=== PATIENT | male | born 1985 | race Two or more races ===

== ENCOUNTER 2023-02-19 06:02 | Emergency (ER) | payer MEDICAID ==
[~2023-02-19] VITALS: Ht 175.3 cm; Wt 95.9 kg
[2023-02-19 07:35] VITALS: BP 122/78; PULSE 63; RESP 16; TEMP 97.8; O2SAT 100
[2023-02-19] MEDS ORDERED: HYDROcodone-ACET 5/325MG TAB PO ONE (07:45)
[2023-02-19] MEDS ORDERED: IBUP-1456 PO (08:52)
== END 2023-02-19 08:54 | disposition home or self-care (01) ==
LOC: ER 06:02
DX: S62.324A Displaced fracture of shaft of fourth metacarpal bone, right hand, initial encounter for closed fracture (principal); I10 Essential (primary) hypertension; E78.5 Hyperlipidemia, unspecified; J44.9 Chronic obstructive pulmonary disease, unspecified; W26.8XXA Contact with other sharp object(s), not elsewhere classified, initial encounter; Y93.89 Activity, other specified; Y92.89 Other specified places as the place of occurrence of the external cause; Y99.8 Other external cause status
CPT/HCPCS: 29125; 73130

== ENCOUNTER 2024-03-06 17:42 | Emergency (ER) | payer MEDICAID ==
[~2024-03-06] VITALS: Ht 175.3 cm; Wt 96.9 kg
[~2024-03-06 17:42] MED LIST: IBUP-1456 PO
[2024-03-06 17:55] VITALS: BP 121/87; PULSE 97; RESP 18; O2SAT 96
[2024-03-06 21:41] LABS: Urine Bacteria None Seen /hpf (None Seen); Urine WBC None Seen /hpf (0 - 3)
[2024-03-06 21:52] LABS: Urine Blood Negative /uL (Negative); Urine Clarity Clear (Clear); Urine Color Yellow (Yellow); Urine Protein, UAD Negative (Negative); Urine Specific Gravity 1.032 (1.001-1.035); Urine Urobilinogen Normal (Negative); Urine pH 5.5 (5.0-9.0)
[2024-03-06] MEDS ORDERED: DOXY100C79 PO (21:58)
[2024-03-06] MEDS: cefTRIAXone SOD 1,000 MG VL IM ONE (22:19)
[2024-03-06 22:27] VITALS: TEMP 98.7
[2024-03-09 01:06] LABS: Chlamydia Trachomatis, NAA Negative (Negative); Neisseria gonorrhoeae, NAA Negative (Negative)
== END 2024-03-06 22:43 | disposition home or self-care (01) ==
LOC: ER 17:42
DX: N48.22 Cellulitis of corpus cavernosum and penis (principal); F17.210 Nicotine dependence, cigarettes, uncomplicated; I10 Essential (primary) hypertension; Z79.899 Other long term (current) drug therapy
CPT/HCPCS: 81001; 86592; 87491; 87591; 96372; 99283; J0696

== ENCOUNTER → 2024-09-27 | Outpatient (CLI) | payer MEDICAID ==
[~2024-09-27] MED LIST changes: +DOXY100C79 PO
== END | disposition home or self-care (01) ==
LOC: Rad HDHVI 13:31
PROVIDERS: ATTEND Internal Medicine Cardiovascular Disease
DX: I10 Essential (primary) hypertension (principal)
CPT/HCPCS: 93306

== ENCOUNTER → 2024-09-30 | Outpatient (CLI) | payer MEDICAID ==
[~2024-09-30] VITALS: Ht 175.3 cm; Wt 83.9 kg
== END | disposition home or self-care (01) ==
LOC: Rad HDHVI 13:25
PROVIDERS: ATTEND Internal Medicine Cardiovascular Disease
DX: I49.1 Atrial premature depolarization (principal); I49.3 Ventricular premature depolarization; I45.10 Unspecified right bundle-branch block; R00.0 Tachycardia, unspecified; R07.89 Other chest pain; R06.02 Shortness of breath; F17.210 Nicotine dependence, cigarettes, uncomplicated; Z82.49 Family history of ischemic heart disease and other diseases of the circulatory system
CPT/HCPCS: 78452; 93017; A9500; 96374